=== PATIENT | female | born 1995 | race Caucasian/White ===

== ENCOUNTER 2020-06-14 20:16 | Emergency (ER) | payer BC, MEDICAID ==
--- NOTE | 2020-06-14 21:02 | EDM.PDOC ---
ED HPI GENERAL MEDICAL PROBLEM - General Chief Complaint: Back Pain or Injury Stated Complaint: RIB AND BACK PAIN Time Seen by Provider: 06/14/20 20:18 Source of Information: Reports: Patient History Limitations: Reports: No Limitations - History of Present Illness INITIAL COMMENTS - FREE TEXT/NARRATIVE: This is a 24-year-old female. She drove from out of town about 4-1/2 hours to get here and slept in a hotel bed. She says the bed was not very comfortable and when she awoke this morning she had soreness in her right upper back. She normally sleeps on her back but she also sleeps on her right side. She also complains of right trapezius muscle tenderness as well. She comes to the ER because of the discomfort in her right upper back and her trapezius muscle. She does not have decreased range of motion of her right shoulder however she does note that when she twists or turns her upper back that is when the muscle seem to bother her the most. She denies any other acute symptoms. She denies any active spasms. If she leans back against something with her right upper back that also makes it sore. 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: Musculoskeletal History: Reports: Fracture Other Musculoskeletal History: arm Neurological History: Reports: Migraines Psychiatric History: Reports: Depression Social & Family History - Family History Family Medical History: Noncontributory - Tobacco Use Smoking Status *Q: Never Smoker Second Hand Smoke Exposure: No - Caffeine Use Caffeine Use: Reports: Soda - Recreational Drug Use Recreational Drug Use: No ED ROS GENERAL - Review of Systems Review Of Systems: See Below Constitutional: Denies: Fever, Chills HEENT: Reports: No Symptoms Respiratory: Reports: No Symptoms Cardiovascular: Reports: No Symptoms Endocrine: Reports: No Symptoms GI/Abdominal: Reports: No Symptoms : Reports: No Symptoms Musculoskeletal: Reports: Back Pain, Muscle Pain Skin: Reports: No Symptoms Neurological: Reports: No Symptoms Psychiatric: Reports: No Symptoms ED EXAM, UPPER BACK/NECK PAIN - Physical Exam Exam: See Below Exam Limited By: No Limitations General Appearance: Alert, WD/WN, No Apparent Distress Eye Exam: Bilateral Eye: Normal Inspection Ears Exam: Normal External Exam Nose Exam: Normal Inspection Throat/Mouth Exam: Normal Inspection, Normal Lips, Normal Voice, No Airway Compromise Head Exam: Normocephalic Neck Exam: Full Range of Motion, Other (Tenderness in the right trapezius muscle on palpation and with movement of her shoulder, she does not have tenderness of the shoulder itself.) Cardiovascular/Respiratory: Regular Rate, Rhythm, Normal Breath Sounds, No R espiratory Distress Back Exam: Normal Inspection, Full Range of Motion, Other (She has tenderness in the right paraspinal muscles in the latissimus dorsi muscle on palpation. She is able to move freely though she complains of pain in those muscles with upper body twisting and movement. The midline spine is nontender and the left side is nontender) Extremities: Normal Inspection, Normal Range of Motion Neurologic: No Motor/Sensory Deficits, Alert, Normal Mood/Affect, Oriented x 3 Psychiatric: Normal Affect, Normal Mood Skin Exam: Normal Color, Warm/Dry Course - Vital Signs Last Recorded V/S: Last Vital Signs Temp 98.1 F 06/14/20 20:23 Pulse 82 06/14/20 20:23 Resp 18 06/14/20 20:23 BP 127/70 06/14/20 20:23 Pulse Ox 99 06/14/20 20:23 Departure - Departure Time of Disposition: 21:01 Disposition: Home, Self-Care 01 Condition: Good Clinical Impression: Thoracic sprain, Muscle tenderness Trapezius muscle strain Qualifiers: Encounter type: initial encounter Laterality: right Qualified Code(s): S46.811A - Strain of other muscles, fascia and tendons at shoulder and upper arm level, right arm, initial encounter - Discharge Information *PRESCRIPTION DRUG MONITORING PROGRAM REVIEWED*: Not Applicable *COPY OF PRESCRIPTION DRUG MONITORING REPORT IN PATIENT GUS: Not Applicable Prescriptions: Cyclobenzaprine [Flexeril] 10 mg PO BID #15 tab Instructions: Muscle Strain, [id number], Thoracic Strain, [id number] Referrals: PCP,Not In Area [Primary Care Provider] - Additional Instructions: Use ice to your back and your muscles on and off for the next 24 hours then you might consider using some heat, continue with your normal activity just realize is going to be sore, you may use the muscle relaxer at nighttime to help ease some of the discomfort but just realize it will make you sleepy, sitter gentle massage of the muscles also to help with the soreness, follow-up with your family doctor as needed and return to the ER as needed Sepsis Event Note (ED) - Evaluation Sepsis Screening Result: No Definite Risk - Focused Exam Vital Signs: Vital Signs Temp Pulse Resp BP Pulse Ox 06/14/20 20:23 98.1 F 82 18 127/70 99
== END 2020-06-14 21:14 | disposition home or self-care (01) ==
LOC: JD.ED 20:16
DX: S46.811A Strain of other muscles, fascia and tendons at shoulder and upper arm level, right arm, initial encounter (principal); S23.3XXA Sprain of ligaments of thoracic spine, initial encounter; G43.909 Migraine, unspecified, not intractable, without status migrainosus; F32.9 Major depressive disorder, single episode, unspecified; Z88.1 Allergy status to other antibiotic agents; Z79.899 Other long term (current) drug therapy; X58.XXXA Exposure to other specified factors, initial encounter
CPT/HCPCS: 99283